=== PATIENT | male | born 1985 | race African-American/Black ===

== ENCOUNTER 2021-04-15 19:54 | Emergency (ER) | payer SELFPAY | END 2021-04-15 23:15 | disposition home or self-care (01) | LOC: CSHERS 19:54 | DX: K94.23 Gastrostomy malfunction (principal) | CPT/HCPCS: 43762; 74018 ==

== ENCOUNTER 2021-06-21 15:20 | Emergency (ER) | payer OTHER, SELFPAY ==
[2021-06-21 15:48] LABS: #Monocytes 0.3 10x3/uL (0.0-1.1); %Basophils 0.8 % (0.0-2.0); %Eosinophils 0.8 % (0.0-6.0); %Lymphocytes 37.5 % (18.0-47.0); %Monocytes 7.5 % (0.0-10.0); Hemoglobin 15.3 g/dL (13.5-17.5); Mean Corpuscular HGB CONC 34.5 g/dL (32.0-36.0); Mean Corpuscular Hemoglobin 30.5 pg (27.0-33.0); Mean Corpuscular Volume 88.4 fl (81.2-95.1); Mean Platelet Volume 9.5 fl (7.4-10.4); Platelet Count 192 10x3/uL (150-450); RBC Distribution Width 13.1 % (11.5-14.5); Red Blood Cell (RBC) Count 5.01 10x6/uL (4.32-5.72); White Blood Cell (WBC) Count 3.7 10x3/uL (3.5-10.5)
[2021-06-21 15:49] LABS: %Neutrophils 53.4 % (40.0-75.0)
[2021-06-21 15:59] LABS: ALT (SGPT) 73 U/L (8-55); AST (SGOT) 45 U/L (5-34); Albumin 4.9 g/dL (3.5-5.0); Alkaline Phosphatase 106 U/L (40-110); Anion Gap 14 mmol/L (10-20); BUN (Urea Nitrogen) 14 mg/dL (8.9-20.6); Bilirubin, Total 0.5 mg/dL (0.2-1.2); Calc. Creatinine Clearance 0 mL/min (70-130); Calcium 10.1 mg/dL (7.8-10.44); Carbon Dioxide 30 mmol/L (22-29); Chloride 102 mmol/L (98-107); Globulin 3.6 g/dL (2.4-3.5); Glucose 101 mg/dL (70-105); Potassium 4.4 mmol/L (3.5-5.1); Protein, Total 8.5 g/dL (6.0-8.3); Sodium 142 mmol/L (136-145)
[2021-06-21 16:40] LABS: Acetaminophen Less than 6.0 mcg/mL (10.0-30.0); Alcohol Less than 10 mg/dL (Less than 10); Salicylate Less than 8.0 mg/dL (15.0-30.0)
[2021-06-21 19:02] LABS: Carbamazepine-Tegretol 4.6 ug/mL (4.0-12.0)
[2021-06-21 22:27] LABS: Carbamazepine-Tegretol 3.5 ug/mL (4.0-12.0)
== END 2021-06-21 22:17 ==
LOC: CSHERS 15:20
DX: T42.1X2A Poisoning by iminostilbenes, intentional self-harm, initial encounter (principal)
CPT/HCPCS: 36415; 80053; 80156; 80307; 85025; 99284

== ENCOUNTER 2022-01-16 21:50 | Emergency (ER) | payer OTHER ==
[2022-01-16] MEDS ORDERED: Lidocaine/Transparent Dressing 1 EACH KIT ONE (23:02)
== END 2022-01-16 23:23 ==
LOC: EEVIPCON 21:50 → CSHERS 21:50
DX: K94.23 Gastrostomy malfunction (principal)
CPT/HCPCS: 43762; 74018

== ENCOUNTER 2023-04-25 01:50 | Emergency (ER) | payer OTHER ==
[2023-04-25] MEDS ORDERED: GASTROGRAFIN 30 ML BOT ONE (12:16)
== END 2023-04-25 03:35 ==
LOC: CSHERS 01:50
DX: K94.23 Gastrostomy malfunction (principal)
CPT/HCPCS: 43762; 74018; Q9963